=== PATIENT | male | born 1985 | race African-American/Black ===

== ENCOUNTER 2017-01-26 16:08 | Emergency (ER) | payer SELFPAY ==
[~2017-01-26] VITALS: Ht 175.3 cm; Wt 104.5 kg
[~2017-01-26 16:08] MED LIST: ABILIFY 10MG TA10 MG; ABILIFY 10MG TA10 MG PO; ACYCLOVIR400 MG PO; BACTRIM DS 8001 TAB PO; CEPHALEXIN500 M1 PO; DEPAKENE 250 MG/1 ML PO; DEPAKOTE 250MG250 MG PO; NO HOME MEDICATIONS; NORCO 325 MG-7.1 TAB PO; PROAIR HFA0.09 MG/AC IH; RANITIDINE HYD150 MG PO; REMERON 15M15 MG/TA1 PO; SEROQUEL 1100 MG/TAB; SEROQUEL 1100 MG/TAB PO
[2017-01-26 16:11] VITALS: BP 140/77; TEMP 97.9
[2017-01-26] MEDS ORDERED: PSYCH MEDS (16:16)
[2017-01-26] MEDS ORDERED: NORCO 325 MG-51 TAB PO (16:57)
[2017-01-26 17:04] VITALS: PULSE 86
== END 2017-01-26 17:04 | disposition home or self-care (01) ==
LOC: COL.ER 16:08
DX: R07.89 Other chest pain (principal); F17.210 Nicotine dependence, cigarettes, uncomplicated; F41.9 Anxiety disorder, unspecified; F20.9 Schizophrenia, unspecified; F31.9 Bipolar disorder, unspecified; Z86.19 Personal history of other infectious and parasitic diseases; Z90.2 Acquired absence of lung [part of]; Z98.890 Other specified postprocedural states

== ENCOUNTER 2017-03-16 18:05 | Emergency (ER) | payer SELFPAY ==
[~2017-03-16] VITALS: Ht 175.3 cm; Wt 98.6 kg
[~2017-03-16 18:05] MED LIST changes: +NORCO 325 MG-51 TAB PO; +PSYCH MEDS
[2017-03-16 18:07] VITALS: BP 124/59; PULSE 121; TEMP 98.5
[2017-03-16] MEDS ORDERED: PRINZIDE 12.5 M1 TAB PO (18:10)
[2017-03-16] MEDS ORDERED: TRILAFON4 MG PO (18:10)
[2017-03-16] MEDS ORDERED: REMERON30 MG PO (18:11)
[2017-03-16] MEDS ORDERED: SINGULAIR 110 MG/TAB PO (18:11)
[2017-03-16] MEDS ORDERED: COGENTIN 2MG2 MG/TA1 PO (18:11)
[2017-03-16] MEDS ORDERED: ULTRAM 50MG TAB50 MG PO (18:30)
== END 2017-03-16 19:47 | disposition home or self-care (01) ==
LOC: COL.ER 18:05
DX: R07.9 Chest pain, unspecified (principal); R06.02 Shortness of breath; R07.1 Chest pain on breathing; I10 Essential (primary) hypertension; F41.9 Anxiety disorder, unspecified; F31.9 Bipolar disorder, unspecified; F17.210 Nicotine dependence, cigarettes, uncomplicated; Z90.2 Acquired absence of lung [part of]; R00.0 Tachycardia, unspecified
CPT/HCPCS: J1885

== ENCOUNTER 2017-05-16 18:01 | Emergency (ER) | payer SELFPAY ==
[~2017-05-16] VITALS: Ht 175.3 cm; Wt 88.2 kg
[~2017-05-16 18:01] MED LIST changes: +COGENTIN 2MG2 MG/TA1 PO; +PRINZIDE 12.5 M1 TAB PO; +REMERON30 MG PO; +SINGULAIR 110 MG/TAB PO; +TRILAFON4 MG PO; +ULTRAM 50MG TAB50 MG PO
[2017-05-16 18:05] VITALS: TEMP 98
[2017-05-16 18:51] LABS: HEMATOCRIT 43.3 % (42.0-52.0); HEMOGLOBIN 14.9 g/dl (13.5-18.0); MEAN CELL VOLUME 95 fl (80.0-100.0); MEAN CORPUSCULAR HEMOGLOBIN 33 pg (27.0-31.0); MEAN CORPUSCULAR HGB CONC 34 g/dl (33.0-37.0); MEAN PLATELET VOLUME 10.3 fl (7.4-10.4); PLATELET COUNT 282 K/mm3 (130-400); RED BLOOD COUNT 4.57 M/mm3 (4.20-5.60); REDCELL DISTRIBUTION WIDTH-CV 11.9 % (11.5-14.5); WHITE BLOOD COUNT 7.2 K/mm3 (4.8-10.8)
[2017-05-16] MEDS ORDERED: psych meds (18:56)
[2017-05-16 19:01] LABS: ADJUSTED CALCIUM 9.6 mg/dL (8.4-10.2); BILIRUBIN,TOTAL 0.7 mg/dL (0.0-1.0); CALCIUM 9.6 mg/dL (8.4-10.2); CREATININE, serum 0.87 mg/dL (0.66-1.25); POTASSIUM 3.9 mmol/L (3.4-5.0)
[2017-05-16 20:00] LABS: PH 6 (5-8); SQUAMOUS EPITHELIAL None Seen /hpf; URINE APPEARANCE Clear; URINE BACTERIA Rare /hpf; URINE BILIRUBIN Negative (NEGATIVE); URINE BLOOD Negative (NEGATIVE); URINE COLOR Straw; URINE GLUCOSE Negative (NEGATIVE); URINE KETONE Negative (NEGATIVE); URINE RBC 0-2 /hpf; URINE UROBILINOGEN Negative (NEGATIVE); URINE WBC 0-2 /hpf
[2017-05-16 20:14] LABS: BASO # 0.1 (0.0-0.2); BASO % 0.8 % (0.0-2.0); EOS # 0.1 (0.0-0.7); GRAN # 3.9 (1.4-6.5); GRAN % 54.9 % (42.2-75.2); LYMPH # 2.4 (1.2-3.4); LYMPH % 33.3 % (20.0-51.0); MONO # 0.6 (0.1-0.6); MONO % 8.7 % (1.7-9.3)
[2017-05-16 20:27] VITALS: BP 141/74; PULSE 58
== END 2017-05-16 20:34 | disposition home or self-care (01) ==
LOC: COL.ER 18:01
PROVIDERS: Emergency Medicine
DX: R10.31 Right lower quadrant pain (principal); F20.9 Schizophrenia, unspecified; F17.210 Nicotine dependence, cigarettes, uncomplicated; Z90.89 Acquired absence of other organs

== ENCOUNTER 2017-11-11 12:10 | Emergency (ER) | payer SELFPAY ==
[~2017-11-11] VITALS: Ht 175.3 cm; Wt 95.5 kg
[~2017-11-11 12:10] MED LIST changes: +psych meds
[2017-11-11 12:12] VITALS: BP 120/59; TEMP 97.9
[2017-11-11 12:44] LABS: BASO # 0.1 (0.0-0.2); BASO % 0.6 % (0.0-2.0); EOS # 0.1 (0.0-0.7); EOS % 1.5 % (0-4.0); GRAN # 4.6 (1.4-6.5); GRAN % 55.9 % (42.2-75.2); HEMATOCRIT 42.2 % (42.0-52.0); HEMOGLOBIN 14.4 g/dl (13.5-18.0); LYMPH # 2.7 (1.2-3.4); LYMPH % 32.9 % (20.0-51.0); MEAN CELL VOLUME 94 fl (80.0-100.0); MEAN CORPUSCULAR HEMOGLOBIN 32 pg (27.0-31.0); MEAN CORPUSCULAR HGB CONC 34 g/dl (33.0-37.0); MEAN PLATELET VOLUME 9.9 fl (7.4-10.4); MONO # 0.7 (0.1-0.6); MONO % 8.4 % (1.7-9.3); PLATELET COUNT 364 K/mm3 (130-400); RED BLOOD COUNT 4.48 M/mm3 (4.20-5.60); REDCELL DISTRIBUTION WIDTH-CV 12.3 % (11.5-14.5)
[2017-11-11 12:53] LABS: ALANINE AMINOTRANSFERASE 30 U/L (21-72); ALBUMIN 4.2 gm/dL (3.5-5.0); ALKALINE PHOSPHATASE 85 U/L (50-136); ANION GAP 10 mmol/L (7-16); AST,SGOT 28 U/L (15-37); BILIRUBIN,TOTAL 0.4 mg/dL (0.0-1.0); BLOOD UREA NITROGEN 10 mg/dL (9-20); CALCIUM 9.3 mg/dL (8.4-10.2); CARBON DIOXIDE 25 mmol/L (22-30); CHLORIDE 104 mmol/L (98-107); CREATININE, serum 0.77 mg/dL (0.66-1.25); GLUCOSE 98 mg/dL (74-106); POTASSIUM 4.3 mmol/L (3.4-5.0); SODIUM 139 mmol/L (137-145); TOTAL PROTEIN 7.3 gm/dL (6.4-8.2)
[2017-11-11 13:05] LABS: TROPONIN-I < 0.012 ng/mL (0.000-0.034)
[2017-11-11] MEDS ORDERED: FLEXERIL 1010 MG/TAB PO (14:08)
[2017-11-11] MEDS ORDERED: LIDODERM 5% PATC1 EA TP (14:14)
[2017-11-11 14:43] VITALS: PULSE 68
== END 2017-11-11 14:44 | disposition home or self-care (01) ==
LOC: COL.ER 12:10
PROVIDERS: Emergency Medicine
DX: R07.89 Other chest pain (principal); R06.02 Shortness of breath; F31.9 Bipolar disorder, unspecified; F41.9 Anxiety disorder, unspecified; F20.9 Schizophrenia, unspecified; F17.210 Nicotine dependence, cigarettes, uncomplicated; F12.90 Cannabis use, unspecified, uncomplicated; Z90.2 Acquired absence of lung [part of]
CPT/HCPCS: J1885

== ENCOUNTER 2018-05-04 16:40 | Emergency (ER) | payer MEDICAID ==
[~2018-05-04] VITALS: Ht 175.3 cm; Wt 83.2 kg
[~2018-05-04 16:40] MED LIST changes: +FLEXERIL 1010 MG/TAB PO; +LIDODERM 5% PATC1 EA TP
[2018-05-04 16:42] VITALS: BP 147/68; TEMP 99.2
[2018-05-04 18:09] LABS: BASO # 0.1 (0.0-0.2); BASO % 0.7 % (0.0-2.0); EOS # 0.1 (0.0-0.7); EOS % 1.2 % (0-4.0); GRAN # 4.7 (1.4-6.5); GRAN % 52.3 % (42.2-75.2); HEMATOCRIT 48.9 % (42.0-52.0); HEMOGLOBIN 16.7 g/dl (13.5-18.0); LYMPH # 3.2 (1.2-3.4); LYMPH % 35.5 % (20.0-51.0); MEAN CELL VOLUME 97 fl (80.0-100.0); MEAN CORPUSCULAR HEMOGLOBIN 33 pg (27.0-31.0); MEAN CORPUSCULAR HGB CONC 34 g/dl (33.0-37.0); MONO # 0.9 (0.1-0.6); MONO % 9.5 % (1.7-9.3); PLATELET COUNT 333 K/mm3 (130-400); RED BLOOD COUNT 5.02 M/mm3 (4.20-5.60); REDCELL DISTRIBUTION WIDTH-CV 13.8 % (11.5-14.5)
[2018-05-04] MEDS ORDERED: HALDOL 2MG T2 MG/TAB IM (18:10)
[2018-05-04 18:19] LABS: ALBUMIN 4.6 gm/dL (3.5-5.0); BILIRUBIN,TOTAL 0.6 mg/dL (0.0-1.0); CALCIUM 9.3 mg/dL (8.4-10.2); CREATININE, serum 0.93 mg/dL (0.66-1.25); POTASSIUM 3.8 mmol/L (3.4-5.0); TOTAL PROTEIN 8.1 gm/dL (6.4-8.2)
[2018-05-04 19:27] LABS: C-REACTIVE PROTEIN < 0.5 mg/dL (0.0-0.9)
[2018-05-04 19:41] LABS: TROPONIN-I < 0.012 ng/mL (0.000-0.034)
[2018-05-04] MEDS ORDERED: NORCO 325 MG-51 TAB PO (19:44)
[2018-05-04 19:53] VITALS: PULSE 78
== END 2018-05-04 19:53 | disposition home or self-care (01) ==
LOC: COL.ER 16:40
PROVIDERS: Physician Assistant
DX: M79.2 Neuralgia and neuritis, unspecified (principal); R07.82 Intercostal pain; F31.9 Bipolar disorder, unspecified; F25.9 Schizoaffective disorder, unspecified; F17.210 Nicotine dependence, cigarettes, uncomplicated
CPT/HCPCS: J1885

== ENCOUNTER 2019-01-24 09:41 | Emergency (ER) | payer MEDICAID ==
[~2019-01-24] VITALS: Ht 175.3 cm; Wt 85.9 kg
[~2019-01-24 09:41] MED LIST changes: +HALDOL 2MG T2 MG/TAB IM
[2019-01-24 09:46] VITALS: BP 129/66; TEMP 97.6
[2019-01-24] MEDS ORDERED: RISPERDAL4 MG PO (09:52)
[2019-01-24 10:35] LABS: COLLECTION METHOD CLEAN CATCH
[2019-01-24 10:38] LABS: BASO # 0.1 (0.0-0.2); BASO % 0.8 % (0.0-2.0); EOS # 0.1 (0.0-0.7); EOS % 1.6 % (0-4.0); GRAN # 4.5 (1.4-6.5); GRAN % 54.3 % (42.2-75.2); HEMATOCRIT 43.6 % (42.0-52.0); HEMOGLOBIN 14.7 g/dl (13.5-18.0); LYMPH # 2.8 (1.2-3.4); LYMPH % 33.5 % (20.0-51.0); MEAN CELL VOLUME 95 fl (80.0-100.0); MEAN CORPUSCULAR HEMOGLOBIN 32 pg (27.0-31.0); MEAN CORPUSCULAR HGB CONC 34 g/dl (33.0-37.0); MEAN PLATELET VOLUME 10.1 fl (7.4-10.4); MONO # 0.7 (0.1-0.6); MONO % 8.1 % (1.7-9.3); PLATELET COUNT 321 K/mm3 (130-400); RED BLOOD COUNT 4.57 M/mm3 (4.20-5.60); REDCELL DISTRIBUTION WIDTH-CV 12.3 % (11.5-14.5)
[2019-01-24 10:45] LABS: PH 6 (5-8); SQUAMOUS EPITHELIAL None Seen /hpf; URINE APPEARANCE Clear; URINE BACTERIA None Seen /hpf; URINE BILIRUBIN Negative (NEGATIVE); URINE BLOOD Negative (NEGATIVE); URINE COLOR Straw; URINE GLUCOSE Negative (NEGATIVE); URINE KETONE Negative (NEGATIVE); URINE LEUKOCYTE ESTERASE Negative (NEGATIVE); URINE NITRATE Negative (NEGATIVE); URINE PROTEIN(semi-quant) Negative (NEGATIVE); URINE RBC None Seen /hpf; URINE UROBILINOGEN Negative (NEGATIVE)
[2019-01-24 10:51] LABS: ALANINE AMINOTRANSFERASE 24 U/L (21-72); ALBUMIN 4.3 gm/dL (3.5-5.0); ALKALINE PHOSPHATASE 87 U/L (50-136); ANION GAP 12 mmol/L (7-16); AST,SGOT 41 U/L (15-37); BILIRUBIN,TOTAL 0.6 mg/dL (0.0-1.0); BLOOD UREA NITROGEN 13 mg/dL (9-20); CALCIUM 9.7 mg/dL (8.4-10.2); CARBON DIOXIDE 24 mmol/L (22-30); CHLORIDE 105 mmol/L (98-107); CREATININE, serum 0.83 (0.66-1.25); GLUCOSE 96 mg/dL (74-106); POTASSIUM 3.9 mmol/L (3.4-5.0); SODIUM 141 mmol/L (137-145); TOTAL PROTEIN 7.6 gm/dL (6.4-8.2)
[2019-01-24 10:52] LABS: C-REACTIVE PROTEIN < 0.5 mg/dL (0.0-0.9)
[2019-01-24 11:47] VITALS: PULSE 71
== END 2019-01-24 12:46 | disposition home or self-care (01) ==
LOC: COL.ER 09:41
PROVIDERS: Physician Assistant
DX: R10.31 Right lower quadrant pain (principal); F20.9 Schizophrenia, unspecified; F31.9 Bipolar disorder, unspecified; F17.210 Nicotine dependence, cigarettes, uncomplicated

== ENCOUNTER 2021-06-14 11:08 | Emergency (ER) | payer SELFPAY ==
[~2021-06-14] VITALS: Ht 175.3 cm; Wt 81.8 kg
[~2021-06-14 11:08] MED LIST changes: +RISPERDAL4 MG PO
[2021-06-14 12:30] LABS: BASO # 0.1 K/mm3 (0.0-0.2); BASO % 0.8 % (0.0-2.0); EOS # 0.1 K/mm3 (0.0-0.7); EOS % 1.1 % (0-4.0); GRAN # 2.9 K/mm3 (1.4-6.5); HEMATOCRIT 41.5 % (42.0-52.0); HEMOGLOBIN 14.4 g/dl (13.5-18.0); LYMPH # 2.4 K/mm3 (1.2-3.4); LYMPH % 39.6 % (20.0-51.0); MEAN CELL VOLUME 91 fl (80.0-100.0); MEAN CORPUSCULAR HEMOGLOBIN 31 pg (27.0-31.0); MEAN CORPUSCULAR HGB CONC 35 g/dl (33.0-37.0); MONO # 0.6 K/mm3 (0.1-0.6); MONO % 9.8 % (1.7-9.3); PLATELET COUNT 357 K/mm3 (130-400); RED BLOOD COUNT 4.58 M/mm3 (4.20-5.60); REDCELL DISTRIBUTION WIDTH-CV 11.8 % (11.5-14.5)
[2021-06-14 12:36] LABS: COLLECTION METHOD CLEAN CATCH
[2021-06-14 12:50] LABS: ALANINE AMINOTRANSFERASE 13 U/L (0-55); ALBUMIN 4.1 gm/dL (3.5-5.0); ALKALINE PHOSPHATASE 80 U/L (0-750); ANION GAP 12 mmol/L (7-16); AST,SGOT 20 U/L (5-34); BLOOD UREA NITROGEN 6 mg/dL (9-21); CARBON DIOXIDE 24 mmol/L (22-29); CHLORIDE 106 mmol/L (98-107); CREATININE, serum 0.98 mg/dL (0.72-1.25); GLUCOSE 83 mg/dL (70-99); POTASSIUM 3.6 mmol/L (3.5-4.5); SODIUM 142 mmol/L (136-145); TOTAL PROTEIN 7.3 gm/dL (6.2-8.1)
[2021-06-14 12:50] LABS: MUCOUS Present /lpf; PH 5 (5-8); SQUAMOUS EPITHELIAL 0-2 /hpf; URINE APPEARANCE Clear; URINE BACTERIA Rare /hpf; URINE BILIRUBIN Negative (NEGATIVE); URINE BLOOD Negative (NEGATIVE); URINE COLOR Yellow; URINE GLUCOSE Negative (NEGATIVE); URINE KETONE Trace (NEGATIVE); URINE LEUKOCYTE ESTERASE Negative (NEGATIVE); URINE NITRATE Negative (NEGATIVE); URINE PROTEIN(semi-quant) Negative (NEGATIVE); URINE RBC 0-2 /hpf; URINE UROBILINOGEN Negative (NEGATIVE)
[2021-06-14 13:01] LABS: ACETAMINOPHEN < 1.0 ug/mL (10-30); ALCOHOL(ethanol),MEDICAL < 10 mg/dL (0-10); SALICYLATE < 5.0 mg/dL (15.0-30.0)
[2021-06-14 13:07] LABS: TRICYCLIC ANTIDEPRESS URINE NEGATIVE
[2021-06-14 13:45] VITALS: BP 137/83; PULSE 81; TEMP 98.5
== END 2021-06-14 13:47 | disposition home or self-care (01) ==
LOC: COL.ER 11:08
PROVIDERS: Student in an Organized Health Care Education/Training Program
DX: F31.9 Bipolar disorder, unspecified (principal); F20.9 Schizophrenia, unspecified; Z79.899 Other long term (current) drug therapy